=== PATIENT | female | born 1995 | race Two or more races ===

== ENCOUNTER 2018-10-01 06:37 | Day surgery (SDC) | payer MEDICAID ==
[~2018-10-01] VITALS: Ht 170.2 cm; Wt 54.4 kg
[2018-10-01 07:22] VITALS: BP 103/50
[2018-10-01 11:18] VITALS: BP 96/47
== END 2018-10-01 10:45 | disposition home or self-care (01) ==
LOC: GI 06:37 → OR 07:30 → GI 07:30
PROVIDERS: Internal Medicine Gastroenterology
PROC: 0DB98ZX Excision of Duodenum, Via Natural or Artificial Opening Endoscopic, Diagnostic (ICD-10-PCS; principal; 2018-10-01 07:30)
PROC: 0DB68ZX Excision of Stomach, Via Natural or Artificial Opening Endoscopic, Diagnostic (ICD-10-PCS; 2018-10-01 07:30)
DX: R10.13 Epigastric pain (principal); Z68.1 Body mass index [BMI] 19.9 or less, adult
CPT/HCPCS: 43235; J1200; J1610; J2250; J2310; J3010; J3490